=== PATIENT | female | born 2000 | race Asian ===

== ENCOUNTER 2023-08-20 18:07 | Emergency (ER) | payer OTHER ==
[~2023-08-20] VITALS: Ht 160 cm; Wt 76.0 kg
[2023-08-20 18:25] VITALS: BP 130/70; PULSE 80; RESP 20; TEMP 98.6; O2SAT 99
[2023-08-20] MEDS ORDERED: CLIN-116 MT (19:18)
== END 2023-08-20 19:56 | disposition home or self-care (01) ==
LOC: ER 18:07
DX: H04.302 Unspecified dacryocystitis of left lacrimal passage (principal)
CPT/HCPCS: 99283

== ENCOUNTER 2023-09-16 15:15 | Emergency (ER) | payer OTHER ==
[~2023-09-16] VITALS: Ht 160 cm; Wt 69.0 kg
[~2023-09-16 15:15] MED LIST: CLIN-116 MT
[2023-09-16 15:41] VITALS: BP 119/60; PULSE 79; RESP 18; TEMP 98.2; O2SAT 100
[2023-09-16] MEDS ORDERED: OXYM30SP26 BOTHNSTRLS (18:22)
[2023-09-16] MEDS ORDERED: ERYT1OIN6 LEFTEYE (18:30)
== END 2023-09-16 19:08 | disposition home or self-care (01) ==
LOC: ER 15:15
DX: H04.302 Unspecified dacryocystitis of left lacrimal passage (principal); Z98.890 Other specified postprocedural states
CPT/HCPCS: 99283

== ENCOUNTER 2024-03-16 23:07 | Emergency (ER) | payer MEDICAID ==
[~2024-03-16] VITALS: Ht 162.6 cm; Wt 69.0 kg
[~2024-03-16 23:07] MED LIST changes: +ERYT1OIN6 LEFTEYE; +OXYM30SP26 BOTHNSTRLS
[2024-03-17 02:46] VITALS: PULSE 74; RESP 16; O2SAT 99
[2024-03-17] MEDS: ALBUTEROL (0.083%) 2.5MG/3ML NEB HHN ONE (02:46)
[2024-03-17] MEDS ORDERED: ALBU18HF2 IH (03:46)
[2024-03-17] MEDS ORDERED: P20 MT (03:46)
[2024-03-17 04:25] VITALS: BP 121/68; PULSE 109; RESP 16; TEMP 37.16964; O2SAT 99
== END 2024-03-17 04:31 | disposition home or self-care (01) ==
LOC: ER 23:07
DX: R05.9 Cough, unspecified (principal); Z79.899 Other long term (current) drug therapy
CPT/HCPCS: 99283; 71045; 94640; Z7610 ×3

== ENCOUNTER 2025-03-07 10:36 | Emergency (ER) | payer OTHER ==
[~2025-03-07] VITALS: Ht 160 cm; Wt 67.0 kg
[~2025-03-07 10:36] MED LIST changes: +ALBU18HF2 IH; +P20 MT
[2025-03-07 11:00] VITALS: O2SAT 100
[2025-03-07 11:26] LABS: BASOPHILS % 0.5 % (0.0-2.0); EOSINOPHILS % 0.9 % (0.0-5.0); HEMATOCRIT. 41.4 % (36.0-48.0); HEMOGLOBIN. 14.0 g/dL (12.0-16.0); LYMPHOCYTES % 17.3 % (20.0-50.0); MEAN PLATELET VOLUME 6.8 fl (7.4-10.4); MONOCYTES % 5.0 % (2.0-8.0); NEUTROPHILS % 76.3 % (40.0-76.0); PLATELET 395 x1000/uL (130-400); RED BLOOD CELL COUNT 4.61 mill/uL (4.2-5.4); RED CELL DISTRIBUTION WIDTH 13.8 % (11.6-14.6)
[2025-03-07 11:35] LABS: CREATININE 0.6 mg/dL (0.6-1.0); UREA NITROGEN BLOOD 7 mg/dL (9-23)
[2025-03-07 11:37] LABS: ASPARTATE AMINOTRANSFERASE 27 IU/L (<34); BILIRUBIN DIRECT 0.1 mg/dL (<=3.0); BILIRUBIN TOTAL 0.5 mg/dL (0.1-1.0); PROTEIN TOTAL 8.1 g/dL (6.0-8.3)
[2025-03-07 12:12] LABS: CLARITY URINE CLEAR (CLEAR); COLOR URINE YELLOW (YELLOW); GLUCOSE URINE NEGATIVE (NEGATIVE); KETONES URINE NEGATIVE (NEGATIVE); LEUKOCYTE ESTERASE URINE NEGATIVE (NEGATIVE); NITRITE URINE NEGATIVE (NEGATIVE); OCCULT BLOOD URINE NEGATIVE (NEGATIVE); PH URINE 8.5 (4.5-8.0); PROTEIN URINE 1+ (NEGATIVE); SPECIFIC GRAVITY URINE 1.022 (1.005-1.030); UROBILINOGEN URINE 0.2 E.U./dL (0.2-1.0)
[2025-03-07] MEDS: ONDANSETRON HCL 4MG/2ML INJ IV ONE (12:35)
[2025-03-07] MEDS: FAMOTIDINE 20MG/2ML VIAL IV ONE (12:35)
[2025-03-07 12:36] LABS: BACTERIA URINE 2+; RBC URINE 0-2 /hpf (0-2); SQUAMOUS EPITHELIAL CELL URINE 2+ /lpf (RARE/1+); WBC URINE 0-2 /hpf (0-2); YEAST URINE NONE SEEN
[2025-03-07] MEDS: SODIUM CHLORIDE 0.9% 1,000 ML IV ONE (12:36)
[2025-03-07 13:26] LABS: HCG SCREEN NEGATIVE
[2025-03-07] MEDS ORDERED: MAG355OR21 MT (13:43)
[2025-03-07] MEDS ORDERED: FAMO-135 MT (13:43)
[2025-03-07 13:56] VITALS: BP 120/71; PULSE 99; RESP 15; TEMP 36.9; O2SAT 100
== END 2025-03-07 13:57 | disposition home or self-care (01) ==
LOC: ER 10:36
DX: K29.20 Alcoholic gastritis without bleeding (principal); J45.909 Unspecified asthma, uncomplicated; Z98.890 Other specified postprocedural states; Z79.899 Other long term (current) drug therapy
CPT/HCPCS: 99284; 96374; 96361; 96375; 80076; 80048; 81003; 81025; 84703; 83690; 85025; 36415; J1308; J2405; J7030